=== PATIENT | female | born 1955 | race Caucasian/White ===

== ENCOUNTER 2016-04-29 21:00 | Emergency (ER) | payer MEDICARE, OTHER ==
[~2016-04-29 21:00] MED LIST: COG0.5 PO; GEODON40 MG PO; LIPITOR40 PO; TOPAMAX25 PO
[2016-04-29 22:43] LABS: BASOPHILS 0.2 %; BASOPHILS ABSOLUTE 0.01 10/3/uL (0.0-0.16); EOSINOPHILS 0.4 %; EOSINOPHILS ABSOLUTE 0.02 10/3/uL (0.0-0.53); ER CBC TAT 0 Hrs 10 Mins; HEMATOCRIT 37.3 % (36.0-48.0); HEMOGLOBIN 12.3 g/dL (12.0-16.0); IMMATURE GRANULOCYTES 0.6 %; IMMATURE GRANULOCYTES ABSOLUTE 0.03 10/3/uL (0.0-0.11); LYMPHOCYTES 42.6 %; LYMPHOCYTES ABSOLUTE 2.09 10/3/uL (0.67-4.30); MEAN CORPUSCULAR HEMOGLOB 30.1 pg (26.0-34.0); MEAN PLATELET VOLUME 9.8 fL (9.2-13.0); MONOCYTES 3.5 %; MONOCYTES ABSOLUTE 0.17 10/3/uL (0.21-1.20); NEUTROPHILS 52.7 %; NEUTROPHILS ABSOLUTE 2.59 10/3/uL (2.02-8.40); RBC DISTRIBUTION WIDTH 13.6 % (12.0-16.0); RED CELL COUNT 4.09 10/6/uL (4.0-5.6); WHITE BLOOD CELLS 4.9 10/3/uL (4.5-10.5)
[2016-04-29 22:52] LABS: ASCORBIC ACID (UR NOT ORDER) NEG (NEG); BILIRUBIN, URINE SMALL (NEG); ER URINALYSIS TAT 0 Hrs 19 Mins; KETONE, URINE TRACE MG/DL (NEG); LEUKOCYTE ESTERASE(NOT OR SMALL (NEG); NITRITE (URINE) NEG (NEG); WBC (NOT ORDERED) (RFLEX) 30 (0-5)
[2016-04-29 22:54] LABS: MANUAL DIFF NO %; MEAN CORPUSCULAR VOLUME 91.2 fL (80-100); PLATELET COUNT 167 10/3/uL (150-400)
[2016-04-29 23:01] LABS: ALBUMIN 3.5 G/DL (3.5-5.0); BAND NEUTROPHILS 1 %; CALCIUM, SERUM 9.5 MG/DL (8.5-10.4); CO2 (CARBON DIOXIDE) 23 MMOL/L (24-34); ER DIFF TAT 0 Hrs 28 Mins; LYMPHOCYTES 51 %; MONOCYTES 6 %; MONOCYTES ABSOLUTE (CALC) 0.29 10/3/uL (0.21-1.20); NEUTROPHILS ABSOLUTE (CALC) 2.11 10/3/uL (2.02-8.40); PLATELET ESTIMATE ADQ (ADEQUATE); POTASSIUM, SERUM 3.9 MMOL/L (3.5-5.3); RBC MORPHOLOGY NORM (NORMAL); SEGMENTED NEUTROPHIL (0) 42 %; SGOT(AST) 94 U/L (5-40); SGPT(ALT) 121 U/L (5-65); TOTAL BILIRUBIN 0.5 MG/DL (0-1.2); TOTAL NUCLEATED CELLS 100
[2016-04-29 23:02] LABS: A/G RATIO 0.8 (0.7-1.9); ALKALINE PHOSPHATASE 177 U/L (45-117); BUN (BLOOD UREA NITROGEN) 15 MG/DL (6-23); CHLORIDE, SERUM 102 MMOL/L (96-112); CREATININE 1.29 MG/DL (0.55-1.02); GFR AFRICAN AMERICAN 52 ML/MIN (>=60); GFR NON AFRICAN AMERICAN 45 ML/MIN (>=60); GLOBULIN 4.6 G/DL (2.5-4.1); GLUCOSE, SERUM 203 MG/DL (60-99); SODIUM, SERUM 139 MMOL/L (135-148); TOTAL PROTEIN 8.1 G/DL (6.0-8.5)
[2016-07-19] MEDS ORDERED: MARI5 PO (13:43)
[2016-07-19] MEDS ORDERED: XARELTO20 MG PO (13:48)
[2016-07-23] MEDS ORDERED: LOVENOX1C SC (12:39)
[2016-10-08] MEDS ORDERED: TOPAMAX25 PO (13:41)
[2016-10-08] MEDS ORDERED: GEODON40 MG PO (13:42)
[2016-10-08] MEDS ORDERED: CREON 24,000 UNIT PO (13:44)
[2016-10-08] MEDS ORDERED: COG0.5 PO (13:44)
[2016-10-08] MEDS ORDERED: XARELTO20 MG PO (13:44)
[2016-10-08] MEDS ORDERED: MARI5 PO (13:45)
[2016-10-08] MEDS ORDERED: IMOD PO (13:46)
[2016-10-08] MEDS ORDERED: LOM PO (13:46)
[2016-10-12] MEDS ORDERED: FLORASTOR250 MG PO (12:12)
[2016-10-12] MEDS ORDERED: BENTYL20 PO (12:13)
== END 2016-04-30 03:04 | disposition home or self-care (01) ==
LOC: ER 21:00
PROVIDERS: Emergency Medicine
DX: E86.9 Volume depletion, unspecified (principal); N17.9 Acute kidney failure, unspecified; Z87.442 Personal history of urinary calculi; Z85.07 Personal history of malignant neoplasm of pancreas; Z79.899 Other long term (current) drug therapy
CPT/HCPCS: 80053; 81001; 83690; 85025; 87086; 96374; 96375; 99284; J2405; J2550

== ENCOUNTER 2016-07-26 05:13 | Inpatient (IN) | payer MEDICARE, OTHER ==
[2016-07-23 11:00] LABS: BASOPHILS 0.4 %; BASOPHILS ABSOLUTE 0.03 10/3/uL (0.0-0.16); EOSINOPHILS 5.7 %; EOSINOPHILS ABSOLUTE 0.42 10/3/uL (0.0-0.53); IMMATURE GRANULOCYTES 0.1 %; IMMATURE GRANULOCYTES ABSOLUTE 0.01 10/3/uL (0.0-0.11); LYMPHOCYTES 27.5 %; LYMPHOCYTES ABSOLUTE 2.03 10/3/uL (0.67-4.30); MONOCYTES 10.4 %; MONOCYTES ABSOLUTE 0.77 10/3/uL (0.21-1.20); NEUTROPHILS 55.9 %; NEUTROPHILS ABSOLUTE 4.11 10/3/uL (2.02-8.40); RBC DISTRIBUTION WIDTH 14.5 % (12.0-16.0); RED CELL COUNT 4.18 10/6/uL (4.0-5.6)
[2016-07-23 11:03] LABS: HEMATOCRIT 45.2 % (36.0-48.0); MANUAL DIFF NO %; MEAN CORPUSCULAR HEMOGLOB 33.5 pg (26.0-34.0); MEAN CORPUSCULAR VOLUME 108.1 fL (80-100); PLATELET COUNT 296 10/3/uL (150-400); WHITE BLOOD CELLS 7.4 10/3/uL (4.5-10.5)
[2016-07-23 11:06] LABS: INTERNATIONAL NORMAL RATI 2.2 UNITS (-); PROTIME (NOT ORD) 24.5 SEC (12.0-14.5)
[2016-07-23 11:07] LABS: PARTIAL THROMBO TIME 47.7 SEC (22.5-37.2)
[2016-07-23 11:19] LABS: A/G RATIO 0.9 (0.7-1.9); ALBUMIN 3.5 G/DL (3.5-5.0); CA-19-9 30.9 U/ML (< 37.0); CALCIUM, SERUM 9.3 MG/DL (8.5-10.4); CHLORIDE, SERUM 111 MMOL/L (96-112); CO2 (CARBON DIOXIDE) 24 MMOL/L (24-34); GLOBULIN 4.1 G/DL (2.5-4.1); POTASSIUM, SERUM 3.7 MMOL/L (3.5-5.3); SGOT(AST) 24 U/L (5-40); SGPT(ALT) 25 U/L (5-65); SODIUM, SERUM 144 MMOL/L (135-148); TOTAL BILIRUBIN 0.3 MG/DL (0-1.2); TOTAL PROTEIN 7.6 G/DL (6.0-8.5)
[2016-07-23 11:20] LABS: ALKALINE PHOSPHATASE 128 U/L (45-117); BUN (BLOOD UREA NITROGEN) 9 MG/DL (6-23); CREATININE 0.71 MG/DL (0.55-1.02); GFR AFRICAN AMERICAN 107 ML/MIN (>=60); GFR NON AFRICAN AMERICAN 92 ML/MIN (>=60); GLUCOSE, SERUM 158 MG/DL (60-99)
--- NOTE | ~2016-07-26 | OP ---
Record Of Operation [facility] [address] [place]. [address] NAME: MARKEL POWERS : 53 STATUS : ADM IN [facility]#: [id number] AGE: 60 ADM/REG DATE : 07/26/16 MR#: [id number] REPORT SERV DATE: 07/26/16 DICTATED BY: TARUN HUSSEIN DATE: 07/26/16 REPORT STATUS : Draft TRANSCRIBED BY: MODL DATE: 07/26/16 DATE OF PROCEDURE: 07/26/2016 ATTENDING SURGEON: Tarun Hussein M.D., present and scrubbed throughout. HEALTH CARE ASSISTANT: Sherman Hamilton MD. PREOPERATIVE DIAGNOSIS: Pancreatic head carcinoma, status post neoadjuvant chemotherapy. POSTOPERATIVE DIAGNOSIS: Pancreatic head carcinoma, status post neoadjuvant chemotherapy. PROCEDURES: 1. Pancreaticoduodenectomy (22 modifier). 2. Wedge liver biopsy. 3. Resection and repair of portal vein. 4. Omental pedicle flap. ANESTHESIA: General endotracheal. ESTIMATED BLOOD LOSS: 500 mL. COMPLICATIONS: SPECIMEN: As above. 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 The patient underwent neoadjuvant chemotherapy with a good response and shrinkage of tumor to allow for possible resection. The risks, benefits, and alternatives to possible Whipple were explained to the patient in detail. The risks include, but not limited to bleeding, infection, reoperation, injury to surrounding structures, reactions to anesthetic medications, incisional hernias, perioperative cardiac events, perioperative thromboembolic events, anastomotic leak including pancreatic fistula, and possible . The patient stated clear understanding of all the risks and requested the procedure be done. DESCRIPTION OF PROCEDURE: After surgical consent was obtained, the patient was transported to the operative theater and onto the operating room table in supine position. General endotracheal anesthesia was administered without difficulty. The patient's abdomen was prepped and draped in a standard sterile fashion. A time-out was performed in order to ensure the proper patient and procedure. Perioperative antibiotics were given and a midline incision was made with a scalpel. The underlying tissue was divided using electrocautery. The abdominal cavity was entered bluntly. The falciform ligament was ligated, divided, and preserved. A wound protector Bookwalter device was implemented for visualization and retraction. We examined the liver and found no abnormalities beside the single nodule on the right liver, this was excised in a wedge fashion using a 15 blade scalpel. Hemostasis was obtained and the specimen was sent for pathology. It was consistent with a calcified Record Of Operation [facility] [address] [facility] [place]. [address] NAME: MARKEL POWERS : 53 STATUS : ADM IN PAT#: [id number] AGE: 60 ADM/REG DATE : 07/26/16 MR#: [id number] REPORT SERV DATE: 07/26/16 DICTATED BY: TARUN HUSSEIN DATE: 07/26/16 REPORT STATUS : Draft TRANSCRIBED BY: MODL DATE: 07/26/16 nodule and there is no tumor evident. We inspected the remainder of the abdominal cavity and saw no obvious metastatic disease. We divided the gastrocolic ligament and entered the lesser sac. We identified the middle colic vein. There was significant retraction in this area, likely from the tumor and/or chemotherapy. We identified the area of the portal vein below the pancreas. We turned our attention to the bassem hepatis. We divided a portion of the gastrohepatic ligament and identified the common hepatic artery. We found the gastroduodenal artery encircled with Vesseloops. Occluding this did not change flow to the hepatic artery. We then doubly ligated and divided the gastroduodenal artery. We encircled the common bile duct, identified the portal vein at the superior aspect of pancreas. A tunnel between the pancreas and the portal vein, preserved the space with a Jen drain. Prior to this, we performed a generous Saw maneuver. We were able to elevate the pancreatic head off the aorta and inferior vena cava. At this point, we divided the common bile duct using electrocautery and divided the omentum on the lesser and greater curvature of the stomach. We then divided the stomach approximately 1 cm proximal to the pylorus using a CHELSEA green load stapler. We identified the proximal jejunum and divided approximately 15 cm past ligament of Treitz. The ligament of Treitz and the mesentery of the proximal jejunum were taken down with Harmonic Scalpel, and the proximal jejunum was flipped to the right side of the abdomen. We placed hemostatic stay sutures at the lower aspect of the pancreas and divided the pancreatic neck above the portal vein using electrocautery. There was significant tumor reaction between the head of the pancreas and the bilateral aspect of the portal vein. We were able to eventually identify the SMA. The total time dissecting out the uncinate process away from the SMA portions of the portal vein was extensive due to the significant inflammation and tumor reaction. This extended the case greater than 3 times what could have been expected normally and as such a 22 modifier will be applied. I was able to eventually elevate the uncinate process off the SMA, but there was no way to take the pancreatic head off the lateral aspect of the portal vein without leaving behind tumor. We placed a Satinsky clamp along the lateral aspect of the portal vein and divided it with scalpel. There was some venous bleeding inferior to this that we controlled with Allis clamps. We then removed the Whipple specimen from the field without further difficulty. We marked the pancreatic and bile duct margins and sent them for pathologic examination. The examination revealed no evidence of cancer at these margins. We then repaired the portal vein with running 5-0 Prolene suture. The portal vein remained widely patent and soft and was not narrowed. SMA as well remained patent and had good pulse. At this point, we turned our attention to the reconstruction. We found a bare area in the transverse colon mesentery to the right of the vessels and opened this area with electrocautery until we brought the proximal jejunum through this hole in a retrocolic fashion. We then performed end-to-side pancreaticojejunostomy. This was done in 2 layers with the inner layer being a [id number] done with interrupted 4-0 PDS. The outer layer was done with a combination of 2 Ethibond in 3-0 silk sutures. The pancreatic duct was approximately 4 mm in size and the parenchyma of the pancreas was moderately hardened. We then created an end-to-side hepaticojejunostomy using a single layer 4-0 PDS suture in a [id number] fashion. We tacked the proximal jejunum to the transverse colon mesentery with interrupted silk sutures and approximately 45 cm away from our biliary anastomosis. We brought up a loop of jejunum in antecolic fashion for gastrojejunostomy. This was done in a stapled [id number] functional end-to-end fashion using a CHELSEA 75 stapler. The common enterotomy was then closed. With TX60B. The greater omentum was tacked over this anastomosis using interrupted silk sutures. We then brought down the falciform ligament and Record Of Operation [facility] [address] [place]. [address] NAME: MARKEL POWERS : 53 STATUS : ADM IN [facility]#: [id number] AGE: 60 ADM/REG DATE : 07/26/16 MR#: [id number] REPORT SERV DATE: 07/26/16 DICTATED BY: TARUN HUSSEIN DATE: 07/26/16 REPORT STATUS : Draft TRANSCRIBED BY: CRISTY DATE: 07/26/16 used it as a vascularized omental pedicle flap to cover pancreaticojejunostomy. This was done with interrupted silk suture. We placed a 19-Greek round Aung drain in the right upper quadrant near pancreatic and biliary anastomoses. We then irrigated out the abdomen with 4 L of sterile saline. We saw no evidence of bile leakage or bleeding. At this point, we elected to close the abdomen. We closed the superior aspect of the fascia using interrupted #1 Vicryl and the rest of the fascia using a looped #1 PDS suture. Once the fascia was closed, the subcutaneous tissue above the fascia were irrigated out with pulse lavage system x3 L. the skin was then closed with a stapling device, and the drain was secured at the skin level with nylon suture. At the end of the procedure, the instrument, lap, and needle counts were all correct. The patient was awoke from anesthesia, having tolerated the procedure without difficulty and returned to the PACU in stable condition. JASPREET/CRISTY Tarun Hussein MD / [id number] CC: Tarun Hussein MD
--- NOTE | ~2016-07-26 | DS ---
Discharge Summary [place] [id number] [facility] [place]. [address] NAME: MARKEL POWERS : 53 STATUS : DIS IN PAT#: [id number] AGE: 60 ADM/REG DATE : 07/26/16 MR#: [id number] REPORT SERV DATE: 08/22/16 DICTATED BY: TARUN GLASS DATE: 08/21/16 REPORT STATUS : Draft TRANSCRIBED BY: CRISTY DATE: 08/21/16 ADMISSION DATE: 07/26/2016 DISCHARGE DATE: 08/05/2016 BRIEF HISTORY: The patient is a pleasant 60-year-old female with pancreatic head adenocarcinoma status post neoadjuvant chemotherapy. The patient underwent Whipple procedure on the . The details of her postsurgical stay can be found on the chart. She is ultimately discharged to home on the in stable condition. She will follow up with me in two weeks. DICTATED BY: MD JASPREET Roque/CRISTY Tarun Glass MD / [id number] CC: MD NICOLE Roque KEVIN
--- NOTE | ~2016-07-26 | CN ---
Consultation Report [facility] [address] [place]. [address] NAME: MARKEL POWERS : 53 STATUS : ADM IN PAT#: [id number] AGE: 60 ADM/REG DATE : 07/26/16 MR#: [id number] REPORT SERV DATE: 07/28/16 DICTATED BY: DATE: REPORT STATUS : Draft TRANSCRIBED BY: MODL DATE: 07/28/16 NEUROLOGY CONSULTATION DATE OF CONSULTATION: 07/28/2016 REASON FOR CONSULT: Encephalopathy. HISTORY OF PRESENT ILLNESS: This is a 60-year-old female, who presented to [facility] secondary to pancreas head tumor, status post resection. The patient noted after the surgery to be encephalopathic. The patient barely answered questions, mostly yes or no questions and does not appear to be very oriented but does not appear to have any kind of focal weakness. The patient's family reports the patient does have similar event in the past after surgery, but not quite as severe and long lasting. The patient's symptom does not appear to have improved over the past two days after surgery. The patient otherwise was noted to have a low-grade fever after hospital admission as well as fluctuating blood pressures, sometimes hypotensive, but otherwise, no reports of other illness was noted. The patient previously was on chemotherapy prior to large tumor resection. REVIEW OF SYSTEMS: The patient's review of systems was unable to be obtained due to current mental status. PAST MEDICAL HISTORY: Significant for posttraumatic stress disorder as well as hyperlipidemia. The patient also noted to have a recent pancreatic head tumor resection. Also, the patient has had recent chemotherapy. FAMILY HISTORY: Significant for type 2 diabetes, as well as coronary artery disease. SOCIAL HISTORY: History of tobacco usage. No alcohol or illicit drug usage. ALLERGIES: THE PATIENT WAS NOTED TO HAVE NO KNOWN DRUG ALLERGIES. 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 HOSPITAL MEDICATIONS: Consist of Cogentin, Geodon, Lovenox, Marinol, Protonix, and Topamax. PHYSICAL EXAMINATION: VITAL SIGNS: At the time of evaluation, the patient was noted to have vital signs with T- max of 100.3, heart rate of 102 to 128, respirations of 14 to 22, blood pressure of 87 to 127 over 55 to 72. GENERAL: The patient is well developed, well nourished, in no acute distress. CARDIOVASCULAR: Regular rate and rhythm. No carotid bruits were otherwise auscultated. PULMONARY: Clear to auscultation bilaterally. NEUROLOGICAL: The patient was alert, oriented to self as well as place, able to recall birthday. The patient was noted to have verbal perseverance with other questions to keep on Consultation Report [place] [id number] [place]. [address] NAME: MARKEL POWERS : 53 STATUS : ADM IN PAT#: [id number] AGE: 60 ADM/REG DATE : 07/26/16 MR#: [id number] REPORT SERV DATE: 07/28/16 DICTATED BY: DATE: REPORT STATUS : Draft TRANSCRIBED BY: MODL DATE: 07/28/16 repeating her birthday. The patient otherwise is able to follow simple commands. Psychomotor retardation was noted with bradykinesia. The patient was noted to have difficulty following complex commands with decreased attention span at the time of evaluation. Mild dysarthria was noted. Decreased spontaneous verbalization was also noted at the time of evaluation. Cranial nerves 2 through 12, pupils equal, round, and reactive to light. Horizontal eye movement was noted to visual stimulation. The patient demonstrated symmetrical facial expression, apparently was noted to have intact facial sensation. The patient does demonstrate movement of bilateral upper and lower extremity against gravity with some giveaway weakness at the time of evaluation. Grimace to noxious stimulation in all four extremities. Deep tendon reflex was trace throughout. The patient demonstrated mild ataxia on bilateral upper extremities, right greater than the left. Gait was not evaluated secondary to encephalopathy. LABORATORY DATA: At the time of evaluation patient's laboratory study demonstrated white blood cell count of 12.9, hemoglobin of 9.2, hematocrit of 28.5, and platelet count of 174. Chemistry panel: Sodium of 145, potassium 3.9, chloride 113, bicarb 30, BUN of 9, creatinine 0.65, glucose of 92, calcium of 8.2, magnesium of 2.0. No neuroimaging was otherwise obtained. IMPRESSION: Encephalopathy. The patient is oriented to self as well as place. She follows some simple commands at the time of evaluation. Also, the patient noted to have a verbal perseverance on evaluation but move all extremities. The patient since the hospital surgery was noted to have mild fever, question of infectious etiology versus PARKER lesion versus seizure versus metabolic etiology versus psychogenic event. We will check CT scan of the brain without contrast. We will check CT abdomen and pelvis with and without IV contrast. We will also check procalcitonin level, ammonia, vitamin B12, thiamine, folate, TSH, free T4 level with morning labs, as well as obtain EEG. RECOMMENDATION: 1. EEG 07/29/2016. 2. CT scan of the brain without contrast. 3. CT abdomen and pelvis with and without IV contrast. 4. Serum ammonia, TSH, free T4, procalcitonin, thiamine, vitamin B12, and folate level. CCH/MODL Russell Doyle MD / [id number] CC: Steve Hussein MD
[~2016-07-26 05:13] MED LIST changes: +LOVENOX1C SC; +MARI5 PO; +XARELTO20 MG PO
[2016-07-26 06:44] LABS: INTERNATIONAL NORMAL RATI 1.1 UNITS (-)
[2016-07-26 06:45] LABS: PARTIAL THROMBO TIME 35.1 SEC (22.5-37.2); PROTIME (NOT ORD) 13.9 SEC (12.0-14.5)
[2016-07-26 13:53] LABS: BASOPHILS 0.1 %; BASOPHILS ABSOLUTE 0.02 10/3/uL (0.0-0.16); EOSINOPHILS 0.4 %; EOSINOPHILS ABSOLUTE 0.05 10/3/uL (0.0-0.53); IMMATURE GRANULOCYTES 0.4 %; IMMATURE GRANULOCYTES ABSOLUTE 0.06 10/3/uL (0.0-0.11); LYMPHOCYTES 8.1 %; LYMPHOCYTES ABSOLUTE 1.13 10/3/uL (0.67-4.30); MEAN CORPUS HGB CONC 32.1 g/dL (32.0-36.0); MEAN CORPUSCULAR HEMOGLOB 32.8 pg (26.0-34.0); MEAN PLATELET VOLUME 10.3 fL (9.2-13.0); MONOCYTES 8.7 %; MONOCYTES ABSOLUTE 1.21 10/3/uL (0.21-1.20); NEUTROPHILS 82.3 %; NEUTROPHILS ABSOLUTE 11.47 10/3/uL (2.02-8.40); RBC DISTRIBUTION WIDTH 15.4 % (12.0-16.0)
[2016-07-26 13:54] LABS: HEMATOCRIT 27.7 % (36.0-48.0); HEMOGLOBIN 8.9 g/dL (12.0-16.0); MANUAL DIFF NO %; MEAN CORPUSCULAR VOLUME 102.2 fL (80-100); PLATELET COUNT 147 10/3/uL (150-400); RED CELL COUNT 2.71 10/6/uL (4.0-5.6); WHITE BLOOD CELLS 13.9 10/3/uL (4.5-10.5)
[2016-07-26 16:22] LABS: MEAN CORPUS HGB CONC 31.4 g/dL (32.0-36.0); MEAN CORPUSCULAR HEMOGLOB 30.6 pg (26.0-34.0); MEAN PLATELET VOLUME 11.8 fL (9.2-13.0)
[2016-07-26 16:31] LABS: HEMATOCRIT 39.5 % (36.0-48.0); HEMOGLOBIN 12.4 g/dL (12.0-16.0); MEAN CORPUSCULAR VOLUME 97.5 fL (80-100); PLATELET COUNT 228 10/3/uL (150-400); RBC DISTRIBUTION WIDTH 18.5 % (12.0-16.0); RED CELL COUNT 4.05 10/6/uL (4.0-5.6); WHITE BLOOD CELLS 19.5 10/3/uL (4.5-10.5)
[2016-07-26 16:32] LABS: MANUAL DIFF YES %
[2016-07-26 16:34] LABS: BUN (BLOOD UREA NITROGEN) 9 MG/DL (6-23); CHLORIDE, SERUM 117 MMOL/L (96-112); CO2 (CARBON DIOXIDE) 23 MMOL/L (24-34); CREATININE 0.78 MG/DL (0.55-1.02); GFR AFRICAN AMERICAN 95 ML/MIN (>=60); GFR NON AFRICAN AMERICAN 82 ML/MIN (>=60); GLUCOSE, SERUM 165 MG/DL (60-99); PHOSPHORUS, SERUM 4.7 MG/DL (2.5-4.5); POTASSIUM, SERUM 4.4 MMOL/L (3.5-5.3)
[2016-07-26 16:35] LABS: CALCIUM, SERUM 7.7 MG/DL (8.5-10.4); SODIUM, SERUM 151 MMOL/L (135-148)
[2016-07-26 16:46] LABS: BAND NEUTROPHILS 10 %; LYMPHOCYTES 7 %; LYMPHOCYTES ABSOLUTE (CALC) 1.37 10/3/uL (0.67-4.30); METAMYELOCYTES 1 %; MONOCYTES 4 %; MONOCYTES ABSOLUTE (CALC) 0.78 10/3/uL (0.21-1.20); NEUTROPHILS ABSOLUTE (CALC) 17.16 10/3/uL (2.02-8.40); SEGMENTED NEUTROPHIL (0) 78 %; TOTAL NUCLEATED CELLS 100
[2016-07-26 16:47] LABS: PLATELET ESTIMATE ADQ (ADEQUATE); RBC MORPHOLOGY NORM (NORMAL)
[2016-07-27 04:35] LABS: BASOPHILS 0.1 %; BASOPHILS ABSOLUTE 0.03 10/3/uL (0.0-0.16); EOSINOPHILS 0 %; EOSINOPHILS ABSOLUTE 0.01 10/3/uL (0.0-0.53); HEMATOCRIT 37.9 % (36.0-48.0); HEMOGLOBIN 12.4 g/dL (12.0-16.0); IMMATURE GRANULOCYTES 0.4 %; IMMATURE GRANULOCYTES ABSOLUTE 0.09 10/3/uL (0.0-0.11); LYMPHOCYTES 9.8 %; LYMPHOCYTES ABSOLUTE 2.04 10/3/uL (0.67-4.30); MANUAL DIFF NO %; MEAN CORPUS HGB CONC 32.7 g/dL (32.0-36.0); MEAN CORPUSCULAR HEMOGLOB 31.7 pg (26.0-34.0); MEAN CORPUSCULAR VOLUME 96.9 fL (80-100); MEAN PLATELET VOLUME 12.1 fL (9.2-13.0); MONOCYTES 9.3 %; MONOCYTES ABSOLUTE 1.94 10/3/uL (0.21-1.20); NEUTROPHILS 80.4 %; NEUTROPHILS ABSOLUTE 16.78 10/3/uL (2.02-8.40); PLATELET COUNT 256 10/3/uL (150-400); RBC DISTRIBUTION WIDTH 20.4 % (12.0-16.0); RED CELL COUNT 3.91 10/6/uL (4.0-5.6); WHITE BLOOD CELLS 20.9 10/3/uL (4.5-10.5)
[2016-07-27 04:36] LABS: INTERNATIONAL NORMAL RATI 1.4 UNITS (-)
[2016-07-27 04:38] LABS: PROTIME (NOT ORD) 16.7 SEC (12.0-14.5)
[2016-07-27 04:41] LABS: BUN (BLOOD UREA NITROGEN) 11 MG/DL (6-23); CALCIUM, SERUM 8.5 MG/DL (8.5-10.4); CHLORIDE, SERUM 116 MMOL/L (96-112); CO2 (CARBON DIOXIDE) 22 MMOL/L (24-34); CREATININE 0.88 MG/DL (0.55-1.02); GFR AFRICAN AMERICAN 82 ML/MIN (>=60); GFR NON AFRICAN AMERICAN 71 ML/MIN (>=60); GLUCOSE, SERUM 141 MG/DL (60-99); PHOSPHORUS, SERUM 4.1 MG/DL (2.5-4.5); POTASSIUM, SERUM 4.5 MMOL/L (3.5-5.3); SGOT(AST) 77 U/L (5-40); SGPT(ALT) 49 U/L (5-65); SODIUM, SERUM 149 MMOL/L (135-148)
[2016-07-27 04:42] LABS: ALBUMIN 2.6 G/DL (3.5-5.0); ALKALINE PHOSPHATASE 77 U/L (45-117); GLOBULIN 2.7 G/DL (2.5-4.1); TOTAL BILIRUBIN 0.9 MG/DL (0-1.2); TOTAL PROTEIN 5.3 G/DL (6.0-8.5)
[2016-07-28 04:52] LABS: BASOPHILS 0.2 %; BASOPHILS ABSOLUTE 0.02 10/3/uL (0.0-0.16); EOSINOPHILS 1.8 %; EOSINOPHILS ABSOLUTE 0.23 10/3/uL (0.0-0.53); IMMATURE GRANULOCYTES 0.4 %; IMMATURE GRANULOCYTES ABSOLUTE 0.05 10/3/uL (0.0-0.11); LYMPHOCYTES 16.5 %; LYMPHOCYTES ABSOLUTE 2.13 10/3/uL (0.67-4.30); MEAN CORPUS HGB CONC 32.3 g/dL (32.0-36.0); MEAN CORPUSCULAR HEMOGLOB 31.6 pg (26.0-34.0); MEAN CORPUSCULAR VOLUME 97.9 fL (80-100); MEAN PLATELET VOLUME 10.5 fL (9.2-13.0); MONOCYTES 10.5 %; MONOCYTES ABSOLUTE 1.36 10/3/uL (0.21-1.20); NEUTROPHILS 70.6 %; NEUTROPHILS ABSOLUTE 9.12 10/3/uL (2.02-8.40); RBC DISTRIBUTION WIDTH 19.7 % (12.0-16.0); WHITE BLOOD CELLS 12.9 10/3/uL (4.5-10.5)
[2016-07-28 04:53] LABS: RED CELL COUNT 2.91 10/6/uL (4.0-5.6)
[2016-07-28 04:54] LABS: HEMATOCRIT 28.5 % (36.0-48.0); HEMOGLOBIN 9.2 g/dL (12.0-16.0); MANUAL DIFF NO %; PLATELET COUNT 174 10/3/uL (150-400)
[2016-07-28 05:05] LABS: BUN (BLOOD UREA NITROGEN) 9 MG/DL (6-23); CALCIUM, SERUM 8.2 MG/DL (8.5-10.4); CHLORIDE, SERUM 113 MMOL/L (96-112); CREATININE 0.65 MG/DL (0.55-1.02); GFR AFRICAN AMERICAN 111 ML/MIN (>=60); GFR NON AFRICAN AMERICAN 96 ML/MIN (>=60); POTASSIUM, SERUM 3.9 MMOL/L (3.5-5.3); SODIUM, SERUM 145 MMOL/L (135-148)
[2016-07-28 05:06] LABS: CO2 (CARBON DIOXIDE) 30 MMOL/L (24-34); GLUCOSE, SERUM 92 MG/DL (60-99); PHOSPHORUS, SERUM 2.3 MG/DL (2.5-4.5)
[2016-07-28 14:41] LABS: HEMOGLOBIN 10.4 g/dL (12.0-16.0)
[2016-07-28 14:42] LABS: HEMATOCRIT 32.7 % (36.0-48.0)
[2016-07-28 16:19] LABS: ASCORBIC ACID (UR NOT ORDER) NEG (NEG); BILIRUBIN, URINE NEGATIVE (NEG); KETONE, URINE NEGATIVE (NEG); LEUKOCYTE ESTERASE(NOT OR NEG (NEG); WBC (NOT ORDERED) (RFLEX) 2 (0-5)
[2016-07-28 16:39] LABS: ULTRASENSITIVE TSH 1.76 MCIU/ML (0.358-3.740)
[2016-07-28 16:40] LABS: FOLATE 12.7 NG/ML (>5.2)
[2016-07-28 17:10] LABS: PROCALCITONIN 0.9 ng/mL (<0.5)
[2016-07-29 06:21] LABS: BASOPHILS 0.1 %; BASOPHILS ABSOLUTE 0.01 10/3/uL (0.0-0.16); EOSINOPHILS 4.3 %; HEMOGLOBIN 9.1 g/dL (12.0-16.0); IMMATURE GRANULOCYTES 0.3 %; IMMATURE GRANULOCYTES ABSOLUTE 0.03 10/3/uL (0.0-0.11); LYMPHOCYTES 14.5 %; LYMPHOCYTES ABSOLUTE 1.35 10/3/uL (0.67-4.30); MEAN CORPUS HGB CONC 32.5 g/dL (32.0-36.0); MEAN CORPUSCULAR HEMOGLOB 31.8 pg (26.0-34.0); MEAN CORPUSCULAR VOLUME 97.9 fL (80-100); MEAN PLATELET VOLUME 11.1 fL (9.2-13.0); MONOCYTES 12.4 %; MONOCYTES ABSOLUTE 1.15 10/3/uL (0.21-1.20); NEUTROPHILS 68.4 %; NEUTROPHILS ABSOLUTE 6.37 10/3/uL (2.02-8.40); PLATELET COUNT 191 10/3/uL (150-400); RBC DISTRIBUTION WIDTH 18.6 % (12.0-16.0); RED CELL COUNT 2.86 10/6/uL (4.0-5.6); WHITE BLOOD CELLS 9.3 10/3/uL (4.5-10.5)
[2016-07-29 06:28] LABS: MANUAL DIFF NO %
[2016-07-29 06:45] LABS: BUN (BLOOD UREA NITROGEN) 7 MG/DL (6-23); CALCIUM, SERUM 8.1 MG/DL (8.5-10.4); CHLORIDE, SERUM 113 MMOL/L (96-112); CO2 (CARBON DIOXIDE) 28 MMOL/L (24-34); FREE T4 1.36 NG/DL (0.76-1.46); GFR AFRICAN AMERICAN 121 ML/MIN (>=60); GFR NON AFRICAN AMERICAN 104 ML/MIN (>=60); GLUCOSE, SERUM 91 MG/DL (60-99); POTASSIUM, SERUM 3.6 MMOL/L (3.5-5.3); SODIUM, SERUM 146 MMOL/L (135-148)
[2016-07-30 06:26] LABS: BASOPHILS 0.4 %; BASOPHILS ABSOLUTE 0.03 10/3/uL (0.0-0.16); EOSINOPHILS 9.1 %; EOSINOPHILS ABSOLUTE 0.61 10/3/uL (0.0-0.53); HEMATOCRIT 30.8 % (36.0-48.0); HEMOGLOBIN 9.8 g/dL (12.0-16.0); IMMATURE GRANULOCYTES 0.1 %; IMMATURE GRANULOCYTES ABSOLUTE 0.01 10/3/uL (0.0-0.11); LYMPHOCYTES 21.9 %; LYMPHOCYTES ABSOLUTE 1.47 10/3/uL (0.67-4.30); MANUAL DIFF NO %; MEAN CORPUS HGB CONC 31.8 g/dL (32.0-36.0); MEAN CORPUSCULAR HEMOGLOB 31.5 pg (26.0-34.0); MEAN PLATELET VOLUME 10.6 fL (9.2-13.0); MONOCYTES ABSOLUTE 0.47 10/3/uL (0.21-1.20); NEUTROPHILS 61.5 %; NEUTROPHILS ABSOLUTE 4.11 10/3/uL (2.02-8.40); PLATELET COUNT 212 10/3/uL (150-400); RED CELL COUNT 3.11 10/6/uL (4.0-5.6); WHITE BLOOD CELLS 6.7 10/3/uL (4.5-10.5)
[2016-07-30 06:37] LABS: BUN (BLOOD UREA NITROGEN) 8 MG/DL (6-23); CHLORIDE, SERUM 113 MMOL/L (96-112); CO2 (CARBON DIOXIDE) 26 MMOL/L (24-34); CREATININE 0.54 MG/DL (0.55-1.02); GFR AFRICAN AMERICAN 118 ML/MIN (>=60); GFR NON AFRICAN AMERICAN 102 ML/MIN (>=60); GLUCOSE, SERUM 87 MG/DL (60-99); POTASSIUM, SERUM 3.8 MMOL/L (3.5-5.3); SODIUM, SERUM 142 MMOL/L (135-148)
[2016-08-01 09:19] LABS: BASOPHILS 0.3 %; BASOPHILS ABSOLUTE 0.03 10/3/uL (0.0-0.16); EOSINOPHILS 1.9 %; EOSINOPHILS ABSOLUTE 0.21 10/3/uL (0.0-0.53); HEMATOCRIT 25.7 % (36.0-48.0); IMMATURE GRANULOCYTES 0.3 %; IMMATURE GRANULOCYTES ABSOLUTE 0.03 10/3/uL (0.0-0.11); LYMPHOCYTES 18.9 %; LYMPHOCYTES ABSOLUTE 2.13 10/3/uL (0.67-4.30); MANUAL DIFF NO %; MEAN CORPUS HGB CONC 31.1 g/dL (32.0-36.0); MEAN CORPUSCULAR HEMOGLOB 30.9 pg (26.0-34.0); MEAN CORPUSCULAR VOLUME 99.2 fL (80-100); MEAN PLATELET VOLUME 11.3 fL (9.2-13.0); MONOCYTES 7.3 %; MONOCYTES ABSOLUTE 0.82 10/3/uL (0.21-1.20); NEUTROPHILS 71.3 %; NEUTROPHILS ABSOLUTE 8.03 10/3/uL (2.02-8.40); PLATELET COUNT 392 10/3/uL (150-400); RBC DISTRIBUTION WIDTH 17.1 % (12.0-16.0); RED CELL COUNT 2.59 10/6/uL (4.0-5.6); WHITE BLOOD CELLS 11.3 10/3/uL (4.5-10.5)
[2016-08-01 09:35] LABS: ALBUMIN 1.9 G/DL (3.5-5.0); ALKALINE PHOSPHATASE 88 U/L (45-117); DIRECT BILIRUBIN < 0.1 MG/DL (0.0-0.4); INDIRECT BILIRUBIN(NOT ORDER) 0.8 MG/DL (0.1-0.9); SGOT(AST) 15 U/L (5-40); SGPT(ALT) 11 U/L (5-65); TOTAL BILIRUBIN 0.9 MG/DL (0-1.2)
[2016-08-02 05:11] LABS: BASOPHILS 0.3 %; BASOPHILS ABSOLUTE 0.03 10/3/uL (0.0-0.16); EOSINOPHILS 7.8 %; EOSINOPHILS ABSOLUTE 0.69 10/3/uL (0.0-0.53); IMMATURE GRANULOCYTES 0.2 %; IMMATURE GRANULOCYTES ABSOLUTE 0.02 10/3/uL (0.0-0.11); LYMPHOCYTES 26.4 %; LYMPHOCYTES ABSOLUTE 2.33 10/3/uL (0.67-4.30); MEAN CORPUS HGB CONC 31.4 g/dL (32.0-36.0); MEAN CORPUSCULAR HEMOGLOB 31.1 pg (26.0-34.0); MEAN PLATELET VOLUME 10.6 fL (9.2-13.0); MONOCYTES 7.6 %; MONOCYTES ABSOLUTE 0.67 10/3/uL (0.21-1.20); NEUTROPHILS 57.7 %; NEUTROPHILS ABSOLUTE 5.09 10/3/uL (2.02-8.40); PLATELET COUNT 301 10/3/uL (150-400); RBC DISTRIBUTION WIDTH 17.2 % (12.0-16.0); WHITE BLOOD CELLS 8.8 10/3/uL (4.5-10.5)
[2016-08-02 05:18] LABS: HEMATOCRIT 19.4 % (36.0-48.0); HEMOGLOBIN 6.1 g/dL (12.0-16.0); RED CELL COUNT 1.96 10/6/uL (4.0-5.6)
[2016-08-02 05:20] LABS: MANUAL DIFF NO %
[2016-08-02 05:49] LABS: A/G RATIO 0.6 (0.7-1.9); ALBUMIN 1.6 G/DL (3.5-5.0); ALKALINE PHOSPHATASE 65 U/L (45-117); BUN (BLOOD UREA NITROGEN) 16 MG/DL (6-23); CALCIUM, SERUM 7.4 MG/DL (8.5-10.4); CHLORIDE, SERUM 114 MMOL/L (96-112); CO2 (CARBON DIOXIDE) 25 MMOL/L (24-34); GFR AFRICAN AMERICAN 114 ML/MIN (>=60); GFR NON AFRICAN AMERICAN 98 ML/MIN (>=60); GLOBULIN 2.5 G/DL (2.5-4.1); GLUCOSE, SERUM 119 MG/DL (60-99); POTASSIUM, SERUM 3.9 MMOL/L (3.5-5.3); SGOT(AST) 12 U/L (5-40); SGPT(ALT) 11 U/L (5-65); SODIUM, SERUM 146 MMOL/L (135-148); TOTAL BILIRUBIN 0.7 MG/DL (0-1.2); TOTAL PROTEIN 4.1 G/DL (6.0-8.5)
[2016-08-02 06:35] LABS: HEMATOCRIT 19.3 % (36.0-48.0); HEMOGLOBIN 6.1 g/dL (12.0-16.0)
[2016-08-02 15:44] LABS: HEMATOCRIT 25.3 % (36.0-48.0); HEMOGLOBIN 8.3 g/dL (12.0-16.0)
[2016-08-03 05:37] LABS: BASOPHILS 0.2 %; BASOPHILS ABSOLUTE 0.02 10/3/uL (0.0-0.16); EOSINOPHILS 8.9 %; EOSINOPHILS ABSOLUTE 0.75 10/3/uL (0.0-0.53); HEMATOCRIT 24.4 % (36.0-48.0); HEMOGLOBIN 7.9 g/dL (12.0-16.0); IMMATURE GRANULOCYTES 0.2 %; IMMATURE GRANULOCYTES ABSOLUTE 0.02 10/3/uL (0.0-0.11); LYMPHOCYTES 24.3 %; LYMPHOCYTES ABSOLUTE 2.04 10/3/uL (0.67-4.30); MEAN CORPUS HGB CONC 32.4 g/dL (32.0-36.0); MEAN PLATELET VOLUME 10.4 fL (9.2-13.0); MONOCYTES 7.4 %; MONOCYTES ABSOLUTE 0.62 10/3/uL (0.21-1.20); NEUTROPHILS ABSOLUTE 4.95 10/3/uL (2.02-8.40); PLATELET COUNT 304 10/3/uL (150-400); WHITE BLOOD CELLS 8.4 10/3/uL (4.5-10.5)
[2016-08-03 05:52] LABS: MANUAL DIFF NO %; MEAN CORPUSCULAR VOLUME 92.8 fL (80-100); RBC DISTRIBUTION WIDTH 20.7 % (12.0-16.0); RED CELL COUNT 2.63 10/6/uL (4.0-5.6)
[2016-08-05 05:18] LABS: BASOPHILS 0.1 %; BASOPHILS ABSOLUTE 0.01 10/3/uL (0.0-0.16); EOSINOPHILS ABSOLUTE 0.61 10/3/uL (0.0-0.53); HEMATOCRIT 24.7 % (36.0-48.0); IMMATURE GRANULOCYTES 0.2 %; IMMATURE GRANULOCYTES ABSOLUTE 0.02 10/3/uL (0.0-0.11); LYMPHOCYTES 18.8 %; LYMPHOCYTES ABSOLUTE 1.64 10/3/uL (0.67-4.30); MEAN CORPUS HGB CONC 32.4 g/dL (32.0-36.0); MEAN PLATELET VOLUME 10.1 fL (9.2-13.0); MONOCYTES 7.1 %; MONOCYTES ABSOLUTE 0.62 10/3/uL (0.21-1.20); NEUTROPHILS 66.8 %; NEUTROPHILS ABSOLUTE 5.84 10/3/uL (2.02-8.40); PLATELET COUNT 363 10/3/uL (150-400); RBC DISTRIBUTION WIDTH 19.6 % (12.0-16.0); RED CELL COUNT 2.58 10/6/uL (4.0-5.6); WHITE BLOOD CELLS 8.7 10/3/uL (4.5-10.5)
[2016-08-05 05:19] LABS: MANUAL DIFF NO %; MEAN CORPUSCULAR VOLUME 95.7 fL (80-100)
[2016-08-05 05:36] LABS: CALCIUM, SERUM 7.8 MG/DL (8.5-10.4); CHLORIDE, SERUM 115 MMOL/L (96-112); CO2 (CARBON DIOXIDE) 26 MMOL/L (24-34); CREATININE 0.74 MG/DL (0.55-1.02); GFR AFRICAN AMERICAN 101 ML/MIN (>=60); GFR NON AFRICAN AMERICAN 87 ML/MIN (>=60); POTASSIUM, SERUM 4.2 MMOL/L (3.5-5.3); SODIUM, SERUM 146 MMOL/L (135-148)
[2016-08-05 05:43] LABS: BUN (BLOOD UREA NITROGEN) 9 MG/DL (6-23); GLUCOSE, SERUM 89 MG/DL (60-99)
[2016-08-05] MEDS ORDERED: DSS PO (16:15)
[2016-08-05] MEDS ORDERED: PRILOSEC40 MG PO (16:15)
[2016-08-05] MEDS ORDERED: PCET PO (16:16)
[2016-10-08] MEDS ORDERED: TOPAMAX25 PO (13:41)
[2016-10-08] MEDS ORDERED: GEODON40 MG PO (13:42)
[2016-10-08] MEDS ORDERED: CREON 24,000 UNIT PO (13:44)
[2016-10-08] MEDS ORDERED: XARELTO20 MG PO (13:44)
[2016-10-08] MEDS ORDERED: COG0.5 PO (13:44)
[2016-10-08] MEDS ORDERED: MARI5 PO (13:45)
[2016-10-08] MEDS ORDERED: IMOD PO (13:46)
[2016-10-08] MEDS ORDERED: LOM PO (13:46)
[2016-10-12] MEDS ORDERED: FLORASTOR250 MG PO (12:12)
[2016-10-12] MEDS ORDERED: BENTYL20 PO (12:13)
== END 2016-08-05 17:11 | disposition home or self-care (01) | DRG 405 ==
LOC: SDC/OF 05:13 → MIC 16:43 → 5SO 07-29 16:09
PROVIDERS: Colon & Rectal Surgery; Psychiatry & Neurology Neurology; Surgery; Transplant Surgery
PROC: 0FB00ZZ Excision of Liver, Open Approach (ICD-10-PCS; 2016-07-26)
PROC: 04BY0ZZ Excision of Lower Artery, Open Approach (ICD-10-PCS; 2016-07-26)
PROC: 0DUS07Z (ICD-10-PCS; 2016-07-26)
PROC: 0F1 Hepatobiliary System and Pancreas, Bypass (ICD-10-PCS; principal; 2016-07-26 07:45)
DX: C25.0 Malignant neoplasm of head of pancreas (principal); G93.40 Encephalopathy, unspecified; D62 Acute posthemorrhagic anemia; Z92.21 Personal history of antineoplastic chemotherapy; F43.12 Post-traumatic stress disorder, chronic; E78.5 Hyperlipidemia, unspecified; E11.9 Type 2 diabetes mellitus without complications; Z83.3 Family history of diabetes mellitus; Z82.49 Family history of ischemic heart disease and other diseases of the circulatory system
CPT/HCPCS: 36415; 70450; 71010; 74000; 74020; 74178; 80048; 80053; 80076; 81001; 82140; 82330; 82607; 82746; 82803; 82947; 83735; 84100; 84132; 84145; 84295; 84425; 84439; 84443; 84481; 85014; 85018; 85025; 85610; 85730; 86301; 86850; 86900; 86901; 86920; 87641; 88307; 88309; 88311; 88331; 88332; 93005; 93975; 94640; 97116-GP; 97161-GP; A9270-GY; C1751; C1769; C9113; G8978-CK-GP; G8979-CI-GP; J0456; J0690; J1170; J1885; J1940; J2250; J2370; J2405; J2543; J2550; J2710; J2765; J3010; J3475; P9016; P9045